=== PATIENT | male | born 1945 | race Caucasian/White ===

== ENCOUNTER 2019-04-22 09:35 | Emergency (ER) | payer MEDICARE, OTHER ==
--- OUTSIDE RECORDS SUMMARY | 2019-04-22 09:48 | XMS REPORT | Continuity of Care Document ---
:1945 External Reference #:[id number] Author Name Asa Jack M.D. (transmitted by agent of provider Sulema Dickerson ) Address [address] [place] [id number] Care Team Providers Name Role Phone Jose L Jones MD - Family Care Team Information Dental Scheduling Coordinator Medicine [facility] Care Team Information Dental Scheduling Coordinator [phone] Practitioner Asa Jack MD - Cardiovascular Care Team Information Dental Scheduling Coordinator Disease Problems Active Problems Provider Date Localized, primary osteoarthritis Alejandra Rodriguez M.D. Onset: 11/26/2018 Social History Type Date Description Comments Sex Unknown ETOH Use Consumes 1 beer per day OR 1 glass of wine per day Tobacco Use Start: Unknown Patient has never smoked Recreational Drug Use Denies Drug Use Smoking Status Reviewed: 03/10/19 Patient has never smoked Exercise Type/Frequency Exercises sporadically Allergies, Adverse Reactions, Alerts Description No Known Drug Allergies Medications Active Medications SIG Qnty Indications Ordering Provider Date Potassium Chloride ER 1 by mouth 90tabs Asa Smith 05/02/2016 every day Thad Jack 20Meq Tablets ER Aspirin 1 by mouth Unknown 81mg Tablets every day Cialis every day as Unknown 10mg Tablets needed Atorvastatin Calcium 1 tablet by 90tabs Asa Smith 40mg mouth daily Thad Jack Tablets Metoprolol Succinate 1 by mouth 180tabs Asa Smith ER twice a day Thad Jack 25mg Tablets ER 24HR Eliquis 1 by mouth Unknown 5mg Tablets twice a day Pantoprazole Sodium 1 by mouth Unknown 40mg daily Solution Rec Losartan Potassium 1 po qd Asa Jack, 25mg MD Tablets Sotalol HCL (AF) 1/2 tab by 90tabs Asa Smith 80mg mouth twice Thad Jack Tablets daily Medications Administered in Office Medication SIG Qnty Indications Ordering Provider Date Depomedrol 40MG Alejandra Rodriguez M.D. 11/26/2018 Injection Immunizations Description No Information Available Vital Signs Date Vital Result Comment 03/10/2019 8:07am Height 70 inches 5'10" Weight 175.50 lb with shoes Heart Rate 72 /min left radial BP Systolic 132 mmHg ule reg cuff sitting BP Diastolic 80 mmHg ule reg cuff sitting BP Systolic Standing 132 mmHg ule reg cuff BP Diastolic Standing 80 mmHg ule reg cuff BMI (Body Mass Index) 25.2 kg/m2 Ejection Fraction 55-60% echo 04/03/18 12/10/2018 8:50am Height 70 inches 5'10" Weight 172.00 lb BP Systolic 136 mmHg BP Diastolic 76 mmHg Body Temperature 99.0 F BMI (Body Mass Index) 24.7 kg/m2 Results Test Acquired Date Facility Test Result H/L Range Note CBC Auto 11/13/2018 [facility] White Blood 6.6 10^3/uL Normal 3.5-10.[address] [place] [address] [phone] Red Blood Count 4.85 10^6/uL Normal 4.18-5.48 Hemoglobin 15.5 g/dL Normal 14.0-18.0 Hematocrit 45 % Normal 42-52 Mean Corpuscular Volume 94 fL Normal 80-94 Mean Corpuscular Hemoglobin 32 pg High 27-31 Mean Corpuscular HGB Conc 34 g/dL Normal 31-36 Red Cell Distribution Width 13 % Normal 10-15 Platelet Count 187 10^3/uL Normal 150-450 Mean Platelet Volume 9.3 fL Normal 7.4-10.4 Abs Neutrophils 3.8 10^3/uL Normal 1.5-7.7 Abs Lymphocytes 1.8 10^3/uL Normal 1.0-4.8 Abs Monocytes 0.8 10^3/uL Normal 0-0.8 Abs Eosinophils 0.2 10^3/uL Normal 0-0.6 Abs Basophils 0.0 10^3/uL Normal 0-0.2 Abs Nucleated RBC 0.0 10^3/uL Granulocyte % 57.4 % Lymphocyte % 27.4 % Monocyte % 11.9 % Eosinophil % 2.9 % Basophil % 0.4 % Nucleated Red Blood Cells % 0.1 Lipid Panel - 11/13/2018 [facility] Creatine 168 U/L Normal 10 -223 1 [address]CK) [place] [address] [phone] Comp Metabolic 11/13/2018 [facility] Sodium 140 Normal 135- 145 Panel 101 mmol/[place] [address] [phone] Potassium 4.3 mmol/L Normal 3.5-5.0 Chloride 104 mmol/L Normal 101-111 Co2 Carbon Dioxide 31 mmol/L Normal 22-32 Anion Gap 5 mmol/L Normal 2-11 Glucose 107 mg/dL High 70-100 Blood Urea Nitrogen 18 mg/dL Normal 6-24 Creatinine 0.81 mg/dL Normal 0.67-1.17 BUN/Creatinine Ratio 22.2 High 8-20 Calcium 9.7 mg/dL Normal 8.6-10.3 Total Protein 6.8 g/dL Normal 6.4-8.9 Albumin 4.2 g/dL Normal 3.2-5.2 Globulin 2.6 g/dL Normal 2-4 Albumin/Globulin Ratio 1.6 Normal 1-3 Total Bilirubin 1.60 mg/dL High 0.2-1.0 Alkaline Phosphatase 90 U/L Normal 34-104 Alt 25 U/L Normal 7-52 Ast 25 U/L Normal 13-39 Egfr Non- 93.4 >60 Egfr 113.0 >60 2 Lipid Profile 11/13/2018 [facility] Triglycerides 46 mg/dL 3 (Trig/Chol/HDL) [address] [place] [address] [phone] Cholesterol 100 mg/dL 4 HDL Cholesterol 35.1 mg/dL 5 LDL Cholesterol 56 mg/dL 6 Laboratory test 11/13/2018 [facility] Magnesium 2.1 mg/dL Normal 1.9-2.[address] [place] [address] [phone] Hemoglobin A1c (Glyco HGB) 5.7 % High 4.0-5.6 8 1 FASTING within 1-2 m cc to pmd and Dr. Luís Stock [facility] Copy Result to: JOSE L JONES ([id number]) 2 Because ethnic data is not always readily available, this report includes an eGFR for both -Americans and non- Americans. The National Kidney Disease Education Program (NKDEP) does not endorse the use of the MDRD equation for patients that are not between the ages of 18 and 70, are , have extremes of body size, muscle mass, or nutritional status, or are non- or non-. According to the National Kidney Foundation, irrespective of diagnosis, the stage of the disease is based on the level of kidney function: Stage Description GFR(mL/min/1.73 m(2)) 1 Kidney damage with normal or decreased GFR 90 2 Kidney damage with mild decrease in GFR 60-89 3 Moderate decrease in GFR 30-59 4 Severe decrease in GFR 15-29 5 Kidney failure <15 (or dialysis) 3 Desirable: <150 Borderline High: 150-199 High: 200-499 Very High: >500 4 Desirable: <200 Borderline High: 200-239 High: >239 5 Low: <40 Desirable: 40-60 High: >60 6 Desirable: <100 Near Optimal: 100-129 Borderline High: 130-159 High: 160-189 Very High: >189 7 FASTING within 1-2 m cc to pmd and Dr. Luís Stock [facility] Copy Result to: JOSE L JONES ([id number]) 8 Therapeutic target for the treatment of diabetes mellitus patients is <7% HBA1C, and in selective patients <6.0%. Please refer to [place] [employer] diabetic care guidelines for further information. Procedures Date Code Description Status 03/10/2019 34865 EKG Tracing & Interpretation Completed 11/27/2018 29551 Implantable Cardio System Loop Recorder Sys Remota Data Completed Acquistio 11/27/2018 38333 Interrogation Device Eval Remote Up To 30 Days Completed Analysis,Rev,RP 11/27/2018 82069 Icd Eval Sing,Dual,Multi Lead Remote Recpt Transm Tech Rev Completed Tech S 11/27/2018 19843 Icd Check Remote Up To 90 Days Single,Dual,Multiple Lead Completed 11/26/2018 48581 Inject/Drain Joint/Bursa Major W/O US Completed 11/12/2018 66838 EKG Tracing & Interpretation Completed 10/23/2018 61433 Interrogation Device Eval Remote Up To 30 Days Completed Analysis,Rev,RP 10/23/2018 03988 Icd Eval Sing,Dual,Multi Lead Remote Recpt Transm Tech Rev Completed Tech S 10/23/2018 31156 Icd Check Remote Up To 90 Days Single,Dual,Multiple Lead Completed Medical Devices Description No Information Available Encounters Type Date Location Provider Dx Diagnosis Office Visit 12/10/2018 [facility] Alejandra Rodriguez, M25.561 Pain in right 8:45a at [facility].D knee M25.461 Effusion, right knee M17.11 Unilateral primary osteoarthritis, right knee Office Visit 11/26/2018 9:30a [facility]25.561 [facility] Eff[facility], right knee M17.11 Unilateral primary osteoarthritis, right knee Office Visit 11/12/2018 1:30p [facility] Asa Smith I49.01 Ventricular Cardiology Thad Jack fibrillation I34.0 Nonrheumatic mitral (valve) insufficiency I10 Essential (primary) hypertension I48.0 Paroxysmal atrial fibrillation E78.00 Pure hypercholesterolemia, unspecified I25.10 Athscl heart disease of [place] coronary artery w/o ang pctrs I44.0 Atrioventricular block, first degree Assessments Date Code Description Provider 03/10/2019 I34.0 Nonrheumatic mitral (valve) insufficiency Asa Jack M.D. 03/10/2019 I10 Essential (primary) hypertension Asa Jack M.D. 03/10/2019 I48.0 Paroxysmal atrial fibrillation Asa Jack M.D. 03/10/2019 E78.00 Pure hypercholesterolemia, unspecified Asa Jack M.D. 12/10/2018 M25.561 Pain in right knee Alejandra Rodriguez M.D. 12/10/2018 M25.461 Effusion, right knee Alejandramatthew Rodriguez M.D. 12/10/2018 M17.11 Unilateral primary osteoarthritis, right Alejandraaby Rodriguez M.D. knee 11/27/2018 I46.9 Cardiac arrest, cause unspecified Asa Jack M.D. 11/27/2018 I46.9 Cardiac arrest, cause unspecified Asa Jack M.D. 11/27/2018 Z95.810 Presence of automatic (implantable) Asa Jack M.D. cardiac defibrillator 11/27/2018 Z95.810 Presence of automatic (implantable) Asa Jack M.D. cardiac defibrillator 11/26/2018 M25.561 Pain in right knee Alejandra Rodriguez M.D. 11/26/2018 M25.461 Effusion, right knee Alejandra Rodriguez M.D. 11/26/2018 M17.11 Unilateral primary osteoarthritis, right Alejandraaby Rodriguez M.D. knee 11/12/2018 I49.01 Ventricular fibrillation Asa Jack M.D. 11/12/2018 I34.0 Nonrheumatic mitral (valve) insufficiency Asa Jack M.D. 11/12/2018 I10 Essential (primary) hypertension Asa Jack M.D. 11/12/2018 I48.0 Paroxysmal atrial fibrillation Asa Jack M.D. 11/12/2018 E78.00 Pure hypercholesterolemia, unspecified Asa Jack M.D. 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 10/23/2018 I46.9 Cardiac arrest, cause unspecified Asa Jack M.D. 10/23/2018 Z95.810 Presence of automatic (implantable) Asa Jack M.D. cardiac defibrillator Plan of Treatment Future Appointment(s):09/08/2019 8:40 am - Asa [facility] M.D. at [facility]03/10/2019 - Asa Jack M.D.I34.0 Nonrheumatic mitral (valve ) [id number] Essential (primary) hypertensionFollow up:September 2019I48.0 Paroxysmal atrial mdmotleadyhbD23.00 Pure hypercholesterolemia, unspecified Functional Status Description No Information Available Mental Status Description No Information Available Referrals Description No Information Available
[2019-04-22] MEDS ORDERED: Ketorolac INJ* 30 MG/ML 1 ML VIAL IV ONE (10:28)
--- NOTE | 2019-04-22 10:33 | ED ---
Lower Extremity - HPI Summary HPI Summary: The patient is a 74 y/o M presenting to [facility] with a chief complaint of sudden onset left knee pain onset yesterday at 0200. He reports that he woke up early yesterday morning with arthralgia in the left knee just superior to the knee and into the patellar region, and he noticed it was warm to touch with decreased ROM with movement. The pain is constant and sharp worsening since onset and currently rated 8/10 in severity. He denies any fevers, chills, or nausea. No medications for treatment prior to arrival. He notes he had a cold last week. No known trauma to the knee or previous injury. No diagnosed joint issues. Patient on Eliquis. PMHx: cardiac arrest with pacemaker placement, HTN, HLD. Nonsmoker, one glass EtOH a night, no substance use. Medications reviewed. Allergies noted. - History of Current Complaint Chief Complaint: EDExtremityLower Stated Complaint: LEFT KNEE PAIN PER PT Time Seen by Provider: 04/22/19 10:06 Hx Obtained From: Patient Mechanism Of Injury: Unknown Onset/Duration: Still Present Severity Initially: Moderate Severity Currently: Severe Pain Intensity: 8 Pain Scale Used: 0-10 Numeric Timing: Constant Location: Is Discrete @ - left knee Character Of Pain: Sharp Associated Signs And Symptoms: Positive: Knee Pain - left, Other - warmth of left knee, decreased ROM with movement; Negative: chills, nausea. Negative: Fever Aggravating Factor(s): Movement Alleviating Factor(s): Rest - Allergies/Home Medications Allergies/Adverse Reactions: Allergies Allergy/AdvReac Type Severity Reaction Status Date / Time No Known Allergies Allergy Verified 04/22/19 09:41 Home Medications: Home Medications Potassium Chlor TAB* [Klor Con ER TAB*] 20 meq PO DAILY 04/22/19 [History Confirmed 04/22/19] PMH/Surg Hx/FS Hx/Imm Hx Endocrine/Hematology History: Denies: Hx Diabetes Cardiovascular History: Reports: Hx Cardiac Arrest, Hx Hypercholesterolemia, Hx Hypertension, Hx Pacemaker/ICD - Surgical History Surgical History: Yes Surgery Procedure, Year, and Place: pacemaker Infectious Disease History: No Infectious Disease History: Denies: Traveled Outside the [place] in Last 30 Days - Family History Known Family History: Negative: Diabetes - Social History Alcohol Use: Daily Hx Substance Use: No Substance Use Type: Reports: None Hx Tobacco Use: No Smoking Status (MU): Never Smoked Tobacco Review of Systems Negative: Fever, Chills Negative: Nausea Positive: Arthralgia - left knee, Decreased ROM - left knee secondary to pain Positive: Other - warmth to left knee All Other Systems Reviewed And Are Negative: Yes Physical Exam - Summary Physical Exam Summary: Constitutional: Well-developed, Well-nourished, Alert. (-) Distressed Skin: Warm, Dry HENT: Normocephalic; Atraumatic Eyes: Conjunctiva normal Neck: Musculoskeletal ROM normal neck. (-) JVD, (-) Stridor, (-) Tracheal deviation Cardio: Rhythm regular, rate normal, Heart sounds normal; Intact distal pulses; Radial pulses are 2+ and symmetric. (-) Murmur Pulmonary/Chest wall: Effort normal. (-) Respiratory distress, (-) Wheezes, (-) Rales Abd: Soft, (-) tenderness, (-) Distension, (-) Guarding, (-) Rebound Musculoskeletal: No obvious effusion to the left knee, Decreased ROM secondary to pain but patient able to move the knee, Left knee is warm compared to the right, No calf or thigh tenderness. (-) Edema Lymph: (-) Cervical adenopathy Neuro: Alert, Oriented x3 Psych: Mood and affect Normal Triage Information Reviewed: Yes Vital Signs On Initial Exam: Initial Vitals Temp Pulse Resp BP Pulse Ox 97.7 F 76 16 150/83 96 04/22/19 09:36 04/22/19 09:36 04/22/19 09:36 04/22/19 09:36 04/22/19 09:36 Vital Signs Reviewed: Yes Procedures - Sedation Patient Received Moderate/Deep Sedation with Procedure: No Diagnostics - Vital Signs Vital Signs Temp Pulse Resp BP Pulse Ox 04/22/19 09:36 97.7 F 76 16 150/83 96 - Laboratory Result Diagrams: 04/22/19 10:35 04/22/19 10:35 Lab Statement: Any lab studies that have been ordered have been reviewed, and results considered in the medical decision making process. - Radiology L Knee XR Radiology Interpretation Completed By: Radiologist Summary of Radiographic Findings: Impression: 1. Osteopenia with no displaced fracture. 2. Chondrocalcinosis. 3. Vascular calcifications. ED physician has reviewed this imaging report. Re-Evaluation - Re-Evaluation First Eval Re-Evaluation Time: 11:20 Change: Improved Comment: He is feeling better. Patient's is in the room and states that the patient has a history of gout at least twice before. Lower Extremity Course/Dx - Course Course Of Treatment: Patient is here with nontraumatic left knee pain. Patient' s left knee was warm compared to the right the patient was able to range his knee. Patient's knee had no effusion on exam or x-ray. No leukocytosis. Patient had very mildly elevated CRP/ESR. Patient's symptoms got much better with Toradol. On my second evaluation, patient's states he's been diagnosed with gout in the past. Patient is likely suffering from gout but was made aware of the severity of septic arthritis and given very strict return cautions. Patient given orthopedic follow-up. She was started on a course of prednisone for suspected gout. - Diagnoses Provider Diagnoses: Gout of left knee Discharge ED - Sign-Out/Discharge Documenting (check all that apply): Patient Departure - Patient will be discharged home. - Discharge Plan Condition: Stable Disposition: HOME Prescriptions: predniSONE TAB* [Deltasone 20 MG TAB*] 40 mg PO DAILY 4 Days #8 tab Patient Education Materials: Gout (ED) Referrals: Alejandra Rodriguez MD [Medical Doctor] - 3 Days [facility] [Outside] - 3 Days Additional Instructions: Follow up with Dr. Rodriguez from orthopedics in 1-3 days. Please take Prednisone as prescribed. Come back if you have worsening swelling in the knee, ability to move your knee, redness, fever, or chills. - Billing Disposition and Condition Condition: STABLE Disposition: Home - Attestation Statements Document Initiated by Oli: Yes Documenting Scribe: Pili Zaidi Provider For Whom Oli is Documenting (Include Credential): Dr. Matthias Moore MD Scribe Attestation: Pili Brock scribed for Dr. Matthias Moore MD on 04/22/19 at 213. Scribe Documentation Reviewed: Yes Provider Attestation: The documentation as recorded by the Pili meadows accurately reflects the service I personally performed and the decisions made by me, Dr. Matthias Moore MD Status of Scribe Document: Viewed
[2019-04-22 10:43] LABS: ABS Lymphocytes 1.2 10^3/ul (1.0-4.8); ABS Monocytes 0.9 10^3/ul (0-0.8); ABS Neutrophils 10.9 10^3/ul (1.5-7.7); Eosinophil % 0.3 %; Hematocrit 45 % (42-52); Hemoglobin 15.5 g/dL (14.0-18.0); Lymphocyte % 9.4 %; Mean Corpuscular HGB Conc 34 g/dL (31-36); Mean Corpuscular Hemoglobin 33 pg (27-31); Mean Corpuscular Volume 94 fL (80-94); Platelet Count 195 10^3/uL (150-450); Red Blood Count 4.76 10^6 /uL (4.18-5.48); Red Cell Distribution Width 12 % (10-15); White Blood Count 13.1 10^3/uL (3.5-10.8)
[2019-04-22 11:03] LABS: Albumin 4.3 g/dL (3.2-5.2); Albumin/Globulin Ratio 1.7 (1-3); BUN/Creatinine Ratio 15.1 (8-20); C Reactive Protein 15.4 mg/L (<8.01); Calcium 9.5 mg/dL (8.6-10.3); EGFR African American 96.1 (>60); EGFR Non-African American 79.4 (>60); Globulin 2.5 g/dL (2-4); Potassium 4.2 mmol/L (3.5-5.0); Total Bilirubin 2.3 mg/dL (0.2-1.0); Total Protein 6.8 g/dL (6.4-8.9)
[2019-04-22 11:47] LABS: Erythrocyte Sed Rate 20 mm/Hr (0-19)
[2019-04-22 12:16] VITALS: BP 130/81
== END 2019-04-22 12:06 | disposition home or self-care (01) ==
LOC: ED 09:35
DX: M10.9 Gout, unspecified (principal); I10 Essential (primary) hypertension; E78.5 Hyperlipidemia, unspecified; Z86.74 Personal history of sudden cardiac arrest; Z95.0 Presence of cardiac pacemaker; Z79.01 Long term (current) use of anticoagulants; Z79.899 Other long term (current) drug therapy
CPT/HCPCS: 36415; 80053; 85025; 85652; 86140; 96374; 99283; J1885; J7512